=== PATIENT | female | born 1955 | race Caucasian/White ===

== ENCOUNTER 2023-04-17 06:22 | Day surgery (SDC) | payer OTHER ==
[2023-04-13 11:41] LABS: Absolute Lymphocytes (CBC) 1.3 K/uL (0.7-4.9); Lymphocytes % 21.1 % (15.3-44.8); MCV 97.2 fL (80-100); MPV 10.4 fL (7.6-11.3); Platelets 169 thou/uL (152-406); RBC Red Blood Cell Count 4.32 M/uL (3.86-4.86)
[2023-04-13 11:51] LABS: Potassium 4.3 mEq/L (3.5-5.1)
--- NOTE | 2023-04-13 12:07 | RAD REPORT ---
EXAM DESCRIPTION: Travis Hargrove (2 Views)04/13/2023 11:37 am CLINICAL HISTORY: Preop for breast surgery. Hypertension COMPARISON: 2012 FINDINGS: Region of the aorticopulmonary window more prominent than on the prior exam Otherwise lungs appear clear. Heart is normal size IMPRESSION: Region of the aorticopulmonary more prominent than on the prior exam. This may represent dilatation of the main pulmonary artery or lymphadenopathy. CT chest with IV contrast is recommended
--- NOTE | 2023-04-13 13:36 | EKG ---
Test Date: 2023-04-13 Test Time: 11:21:19 Personnel And Payroll Technician: JESSY MEASUREMENT RESULTS: Intervals: Rate: 83 KS: 156 QRSD: 82 QT: 430 QTc: 505 [place]: P: 54 KS: 156 QRS: 97 T: 66 INTERPRETIVE STATEMENTS: Normal sinus rhythm Rightward axis Prolonged QT Abnormal ECG Compared to ECG 09/25/2018 09:14:53 Prolonged QT interval now present Electronically Signed On 04-13-23 13:35:22 CDT by Binh Greco
[2023-04-17] MEDS ORDERED: CEFAZOLIN SODIUM 1 GM/VIAL ONE (06:53)
[2023-04-17] MEDS ORDERED: NA CHLORIDE 0.9% 1,000 ML ONE (06:53)
[2023-04-17] MEDS ORDERED: LIDOCAINE 2% MPF 5 ML VIAL ONE (08:21)
[2023-04-17] MEDS ORDERED: ONDANSETRON 4 MG/2 ML VIAL ONE (08:21)
[2023-04-17] MEDS ORDERED: propofoL 200 MG/20 ML VIAL IV ONE (08:21)
[2023-04-17] MEDS ORDERED: BUPIVACAINE 0.5% PF 10 ML VIAL ONE (09:05)
[2023-04-17] MEDS ORDERED: MIDAZOLAM HCL 2 MG/2 ML INJ ONE (09:42)
[2023-04-17] MEDS ORDERED: FENTANYL CITR 100 MCG/2 ML ONE (09:42)
[2023-04-17] MEDS ORDERED: KETOROLAC 30 MG/ML INJ ONE (09:50)
--- NOTE | 2023-04-17 10:16 | P.BOP ---
Preoperative diagnosis: left breast mass, Atypical ductal hyperplasia Postoperative diagnosis: same Primary procedure: Left breast lumpectomy needle localized K9 Handler: Carolina Orourke (Kely) Estimated blood loss: <10cc Specimen: breast mass Anesthesia: General Complications: None Transferred to: Recovery Room Condition: Good
[2023-04-17] MEDS ORDERED: Mastisol Adhesive Liq ONE (10:25)
--- NOTE | 2023-04-17 16:10 | RAD REPORT ---
EXAM DESCRIPTION: [facility] BRE[facility] NEEDLE LOCAL[facility]ATION - 04/17/2023 9:05 am CLINICAL HISTORY: Left breast Needle localization. Concern for breast cancer TECHNIQUE AND FINDINGS: Full field left CC and MLO views were initially obtained, demonstrating sati sfactory positioning of the clip, just antro lateral to residual suspicious macro calcifications in t he upper outer left breast mid to posterior depth. The risks and benefits were explained to the patient, and an informed consent was obtained. Time-out procedure was performed. The skin, subcutaneous tissues and breast tissue were anesthetized utilizing 1% lidocaine. Under mammographic guidance, and through a CC from above approach, a 7 centimeter wire localization n eedle was placed in the vicinity of the clip. Once a satisfactory position of the needle was obtained , imaging was then performed in the LM projection, and a needle position was adjusted further. Once a satisfactory needle position was obtained, the wire was deployed. The wire was dressed and draped in the usual fashion. The patient then left the Radiology department, headed to the OR. She tolerated the procedure well. IMPRESSION: Successful Mammographically-guided needle wire localization of a left breast post biopsy clip. BI-RADS: Suspicious abnormality. Biopsy should be considered. ResultCode: S
--- NOTE | 2023-04-17 16:19 | RAD REPORT ---
EXAM DESCRIPTION: [facility] BREAST TISSUE SAMPLE - 04/17/2023 10:57 am CLINICAL HISTORY: Left breast Needle localization. Concern for breast cancer TECHNIQUE AND FINDINGS: Single specimen radiograph is obtained. The image demonstrates the localization wire, with its tip present near the residual microcalcificati ons and adjacent post biopsy clip. These are all present in the square labeled 4 D. Additional groupi ngs of microcalcifications are present in the 4 C and 5 A squares. IMPRESSION: Specimen radiographs containing the localization wire, residual microcalcifications, and adjacent post biopsy clip. The findings were communicated to the OR at the time of imaging.
--- NOTE | 2023-04-17 18:14 | DS ---
Date of Discharge: 04/17/2023 Diagnosis: Left breast mass, atypical ductal hyperplasia. Postoperative Diagnosis: Left breast lumpectomy, needle localized. Disposition: Home. Activity: As tolerated. No heavy lifting. Plan: Follow up in my office in 1 week. Call for appointment [phone]. Keep area intact and use [facility] support. EDDIE/FEDERICO Voice ID: [id number] Report ID: [id number]
--- NOTE | 2023-04-17 18:14 | OP ---
Date of Procedure: 04/17/2023 Surgeon: Angel Mckeon MD Ux Developer: Carolina Terrazas. Preoperative Diagnoses: Left breast mass, atypical ductal hyperplasia. Postoperative Diagnoses: Left breast mass, atypical ductal hyperplasia. Procedures: Left breast lumpectomy, needle localized. Estimated Blood Loss: Less than 10 cc. Anesthesia: General plus local. Specimen: Breast mass. Findings: Lesion within the specimen by Dr. Weiner with the wire intact. Indication: This is the case of a 67-year-old patient who had a suspicious mass in the left breast, did a core biopsy initially. It shows atypical ductal hyperplasia and a surgical lumpectomy was sugg ested by the radiologist. Patient did agree that we booked her for a left breast lumpectomy, needle localized with benefits, alternatives and risks including, but not limited to, infection, bleeding, d amage to adjacent structures, anesthesia complication, MA, and even . She also understands this may not relieve any symptoms. She might need more than one surgical intervention. She understood, signed a consent. Procedure In Detail: Patient brought to the operating room, placed in supine position. Anesthesia w as done without complication. The left breast was prepped and draped in sterile fashion. A time-out was called. The patient went this morning to Radiology Department where they had localization of th e lesion. I discussed the case with the radiologist. The needle was left intact and the wire until here in the OR. We prepped the area making sure the wire is not moved. After a time-out, the area w as prepped and draped. We proceeded then to make a curvilinear incision. Incision was carried down to breast tissue. An Allis was used to secure the breast tissue to the wire and then we removed the lump from an adjacent area. The patient had previous surgeries in that region with some scar tissue seen. The lump was removed, sent to the radiologist who confirmed the lesion within the specimen. H emostasis was obtained. The area was closed with a combination of 3-0 chromic and 4-0 PDS. Sponge c ounts, instrument counts were correct. The patient sent to recovery room in stable condition. EDDIE/FEDERICO Voice ID: [id number] Report ID: [id number]
[2023-04-20 13:50] VITALS: BP 138/73; TEMP 97.8; O2SAT 95
== END 2023-04-17 12:10 | disposition home or self-care (01) ==
LOC: OR 06:22
PROVIDERS: ATTEND Surgery
PROC: 0HBU0ZZ Excision of Left Breast, Open Approach (ICD-10-PCS; principal; 2023-04-17 09:45)
DX: D05.12 Intraductal carcinoma in situ of left breast (principal); Z17.0 Estrogen receptor positive status [ER+]
CPT/HCPCS: 19281; 36415; 71046; 76098; 80048; 82947; 85025; 88307; 93005; J0690; J2001; J2250; J2405; J2704; J3010; J7030